=== PATIENT | female | born 1970 | race Caucasian/White ===

== ENCOUNTER 2024-02-17 13:29 | Emergency (ER) | payer BC, SELFPAY ==
[2024-02-17 13:39] VITALS: BP 131/78; PULSE 99; RESP 16; TEMP 36.9; O2SAT 100
--- NOTE | 2024-02-17 13:56 | ED.SKABFB ---
HPI - Skin/Abscess/Foreign Bdy General Chief complaint: Skin/Abscess/Foreign Body Stated complaint: Allergic reaction Time Seen by Provider: 02/17/24 13:56 Source: patient and RN notes reviewed Mode of arrival: ambulatory Limitations: no limitations History of Present Illness HPI narrative: 53-year-old female presents with concern for allergic reaction to antibiotics. She reports she was on cephalexin for about 3 days, her last dose was Friday night. He reports on Friday she began having itchiness with redness on her scalp, face, ears, chest, upper arms. Reports she has been taking Benadryl 3 times a day with little relief, she doubled the dose last night so she could sleep because the itchiness is causing her trouble sleeping. She reports her dysuria has improved and she no longer has chills. She denies shortness of breath, swollen lips, swollen tongue, trouble breathing MD complaint: rash Related Data Home Medications Medication Instructions Recorded Confirmed lactobacillus combination no.4 3 3,000 mmu cells PO DAILY 05/27/22 02/17/24 billion cell capsule (Probiotic) multivitamins 1 tablet PO DAILY 05/27/22 02/17/24 w/Calcium,[id number] no.187 200 mcg tablet Allergies Allergy/AdvReac Type Severity Reaction Status Date / Time cephalexin AdvReac Mild Hives Verified 02/17/24 13:43 Review of Systems Review of Systems: CONSTITUTIONAL: Denies malaise, chills, sweats, or fever. EYES: Denies redness, or discharge. ENT: Denies rhinorrhea, congestion, swollen lips, swollen tongue CARDIOVASCULAR: Denies chest pain, palpitations, or edema. RESPIRATORY: Denies cough or dyspnea. GASTROINTESTINAL: Denies abdominal pain, nausea, vomiting SKIN: Reports itchiness with redness to the scalp, ears, face, chest, upper arms MUSCULOSKELETAL: Denies joint pain or myalgia. NEUROLOGIC: Denies headache. All systems reviewed & are unremarkable except as noted in HPI and below PMFSH Past Medical History Medical History (Updated 02/17/24 @ 14:04 by Xochitl Velez NP) Impaired fasting blood sugar Thyroid nodule fine needle aspiration 2019- negative Surgical History Surgical History (Updated 02/20/23 @ 08:32 by Bindu Tan PA-C) H/O tubal ligation 2004 History of 1999 History of partial hysterectomy 2016- still has Left ovary, right removed Social History Social History (Updated 02/20/23 @ 07:58 by Geraldine Barraza) Smoking status: Never smoker Alcohol intake: current Substance use: never Substance use type: does not use Lack of Transportation: No Lack of Food: Never True Current Housing: I Have Housing Concerned About Future Housing: No Difficulty Paying Gas/Electric Bills: No Difficulty Paying for Meds: No Currently Unemployed: No Difficulty w/ Childcare or Family Care: No Living arrangements: with family Occupation/Education: occupation Gender identity (if verbalized by the patient): Female Sexual Orientation (if Verbalized by the Patient): Straight or Heterosexual Comments At time of signature, agree with nursing past medical, surgical, social and family history. There is no relevant family history pertinent to the presenting complaint Exam Narrative: GENERAL: Well-appearing, well-nourished, and in no acute distress. HEAD: Normocephalic, atraumatic. EYES: PERRLA, conjunctivae clear, and EOMI. ENT: Mucous membranes moist. Oropharynx without edema, erythema or lesions. NECK: Supple. No lymphadenopathy CHEST: Clear to auscultation. No respiratory distress. HEART: Regular rate and rhythm. SKIN: Warm, dry. Erythema noted to upper arms, chest NEURO: Alert and oriented x3. PSYCH: Normal mood and affect Course Course Emergency Course: Patient only had 3 days of cephalexin, she was having chills and fever originally. I do not feel that 3 days of cephalexin was sufficient coverage for this patient's urinary tract infections so I will
== END 2024-02-17 14:06 | disposition home or self-care (01) ==
PROVIDERS: Emergency Provider Nurse Practitioner
DX: L29.9 Pruritus, unspecified (principal); L53.9 Erythematous condition, unspecified; T36.1X5A Adverse effect of cephalosporins and other beta-lactam antibiotics, initial encounter; N39.0 Urinary tract infection, site not specified
CPT/HCPCS: 99213; G0463